=== PATIENT | female | born 1940 | race Caucasian/White ===

== ENCOUNTER 2023-05-25 11:36 | Emergency (ER) | payer MEDICARE, OTHER ==
[2023-05-25] MEDS ORDERED: Ondansetron 4 MG/2 ML SDV IVPUSH ONE (12:06)
[2023-05-25] MEDS ORDERED: Sodium Chloride 0.9% 1,000 ML IV SCH ×2 (12:15→14:00)
[2023-05-25 12:25] LABS: HEMATOCRIT 34.8 % (34.3-46.0); HEMOGLOBIN 11.2 g/dL (11.2-15.5); MEAN CORPUSCULAR HEMOGLOBIN 32.5 pg (31.6-35.5); MEAN CORPUSCULAR HGB CONC 32.2 g/dL (31.6-35.5); MEAN CORPUSCULAR VOLUME 100.9 fL (81.4-99.0); PLATELET COUNT,PLT 129 K/uL (130-375); RED BLOOD CELL COUNT 3.45 M/uL (3.77-5.24); WHITE BLOOD CELL COUNT,WBC 10.9 K/uL (3.2-11.0)
[2023-05-25] MEDS ORDERED: Norepinephrine Bit/D5W Premix 4 MG in Premix Bag 1 BAG IV SCH (12:30)
[2023-05-25 12:39] LABS: INR 1.2; PROTHROMBIN TIME 12.3 sec (9.2-10.6)
[2023-05-25 12:48] LABS: BAND ABSOLUTE MAN 1.74 K/uL; BAND PERCENT MAN 16 % (5-11); LYMPHOCYTES ABSOLUTE MAN 0.44 K/uL (0.8-3.3); LYMPHOCYTES PERCENT MAN 4 % (24-44); MONOCYTES ABSOLUTE MAN 0.33 K/uL (0.20-0.90); MONOCYTES PERCENT MAN 3 % (2-6); NEUTROPHILS ABSOLUTE MAN 8.39 K/uL (1.0-7.6); SEG NEUTROPHILS PERCENT MAN 77 % (36-66)
[2023-05-25 12:58] LABS: A/G RATIO 0.9 (1.2-2.2); ALANINE AMINOTRANSFERASE,ALT 231 U/L (12-78); ALBUMIN 2.5 g/dL (3.4-5.0); ALKALINE PHOSPHATASE 78 U/L (46-116); ASPARTATE AMNIOTRANSFERASE,AST 261 U/L (15-37); BILIRUBIN TOTAL 0.4 mg/dL (0.2-1.0); BLOOD UREA NITROGEN,BUN 26 mg/dL (7-18); CALCIUM 7.8 mg/dL (8.5-10.1); CARBON DIOXIDE,CO2 20 mmol/L (21-32); CHLORIDE,CL 104 mmol/L (100-108); CREATININE 2.3 mg/dL (0.6-1.0); EST CRCL DRUG DOSING (CG) 15.17 mL/min; ESTIMATED GFR 21 mL/min (>60); GLUCOSE RANDOM 90 mg/dL (74-106); POTASSIUM,K 3.9 mmol/L (3.6-5.2); PROTEIN TOTAL,TP 5.3 g/dL (6.4-8.2); SODIUM,NA 137 mmol/L (140-148)
[2023-05-25 13:00] LABS: ANION GAP 16.9 mmol/L (5.0-14.0); TROPONIN I HIGH SENSITIVITY 5.1 pg/mL (<=60.3)
[2023-05-25] MEDS ORDERED: Ampicillin/Sulbactam Na 3 GM in Sodium Chloride 0.9% 100 ML IV ONE (13:10)
[2023-05-25] MEDS ORDERED: Sodium Chloride 0.9% 1,000 ML IV ONE (15:42)
== END 2023-05-25 16:45 | disposition critical access hospital (66) ==
LOC: JP.ED 11:36
DX: E86.0 Dehydration (principal); I95.3 Hypotension of hemodialysis; I95.9 Hypotension, unspecified; E86.1 Hypovolemia; E87.20 Acidosis, unspecified; N28.9 Disorder of kidney and ureter, unspecified; Z20.822 Contact with and (suspected) exposure to COVID-19; Z79.899 Other long term (current) drug therapy
CPT/HCPCS: 36415; 71045; 74176; 80053; 83605; 83690; 84443; 84484; 85025; 85610; 87040; 93005; 96365; 96366; 96368; 96375; 99285; J0295; J2405; J3490; J7030; U0002